=== PATIENT | male | born 1960 | race Caucasian/White ===

== ENCOUNTER 2019-08-09 22:42 | Inpatient (IN) | payer MEDICARE, OTHER ==
[~2019-08-09] VITALS: Ht 175.3 cm; Wt 65.8 kg
[2019-08-09] MEDS ORDERED: BLOOD SUGAR DIAGNOSTIC 1 EACH STRIP IN ONE (23:45)
[2019-08-10 00:01] VITALS: BP 131/75
--- NOTE | 2019-08-10 02:00 | NUR ---
GPS BOTTLE SELECTOR NOTES: RECEIVED PT FROM [facility]. PT IS HOMELESS. ARRIVED THIS UNIT AT 2300 VIA STRETCHER WITH 2 EMT ESCORTS. PT ADMITTED ON 5150 FOR DTS, HOLD WAS PLACED ON 08/09/2019 @ 2230. PER HOLD PT CAME TO [facility] ER COMPLAINING OF THROAT PAIN THAT HAS BEEN GOING ON FOR ABOUT A MONTH WITHOUT IMPROVEMENT BUT DENIES ANY TROUBLE EATING OR DRINKING. PT REPORTED HE HAS BEEN EXPERIENCING SOB FOR THE LAST MONTH AND STATED HE IS FEELING SUICIDAL WITH PLAN TO CUT HIS THROAT WITH A BOTTLE DUE TO HOMELESSNESS. UPON FACE TO FACE ASSESSMENT, PATIENT IS ALERT AND ORIENTED X3. CALM AND COOPERATIVE, APPEARS DEPRESSED WITH FLAT AFFECT. NO BEHAVIORAL ISSUES AT THIS TIME. PT IS CURRENTLY SLEEPING, HAS NO S/S OF DISTRESS AND NO COMPLAINS OF PAINS. PT APPEARS DISHEVELED AND UNKEPT. RESPIRATION EVEN AND UNLABORED WITH EQUAL RISE AND FALL OF THE CHEST, ON ROOM AIR. DENIES SI AT THIS TIME. PT WAS ADVISED OF HIS HOLD. PT'S RIGHTS HANDBOOK GIVEN. PT BELONGINGS WERE INVENTORIED AND CHECKED FOR CONTRABAND AND CONTRABANDS PUT IN LOCKED LOCKER. PT IS UNDER THE PSYCHIATRIC CARE OF DR. BAH AND MEDICAL CARE OF DANILO. SKIN ASSESSMENT DONE, PICTURES TAKEN AND PLACED IN PT CHART. PT MAY BENEFIT FROM CONSTRUCTION JOB TITLES CONSULT DUE TO BILATERAL BLACK OVERGROWN TOE NAILS. SOCIAL SERVICE CONSULT ORDERED BECAUSE PT IS HOMELESS. PT REFUSED TO SIGN ADMISSION PAPER WORK BECAUSE HE IS TIRED. PT ORIENTED TO ROOM, FLOOR AND STAFF WITH ALL QUESTIONS ANSWERED. EDUCATION PROVIDED ON THE USE OF CALL ARREDONDO. PT BED IS IN LOW LOCKED POSITION WITH SIDE RAILS UP X2 FOR SAFETY. CARE PLAN STARTED. FALL PRECAUTIONS IMPLEMENTED. WILL CONTINUE TO MONITOR Q15 MINS AND Q 1HR FOR SAFETY, MOOD AND BEHAVIOR.
[2019-08-10 06:59] LABS: BASOPHILS # (AUTO) 0.1 /CMM (0.0-0.2); BASOPHILS % (AUTO) 0.9 % (0.0-2.0); EOSINOPHILS % (AUTO) 3.1 % (0.0-6.0); HEMATOCRIT 43 % (39-51); HEMOGLOBIN 14.1 g/dL (13.5-17.5); LYMPHOCYTES # (AUTO) 1.8 /CMM (0.8-4.8); LYMPHOCYTES % (AUTO) 28.3 % (20.0-44.0); MEAN CORPUSCULAR HGB CONC 33 g/dl (31.0-36.0); MEAN CORPUSCULAR VOLUME 89 fL (80-96); MONOCYTES # (AUTO) 0.6 /CMM (0.1-1.30); MONOCYTES % (AUTO) 8.6 % (2.0-12.0); NEUTROPHILS # (AUTO) 3.8 /CMM (1.8-8.9); NEUTROPHILS % (AUTO) 59.1 % (43.0-81.0); PLATELET COUNT (AUTO) 186 /CMM (150-450); RED BLOOD CELL COUNT(AUTO) 4.78 MIL/uL (4.5-6.0); WHITE BLOOD COUNT (AUTO) 6.5 K/uL (4.3-11.0)
[2019-08-10 07:07] LABS: CALCIUM, SERUM 8.5 mg/dL (8.5-10.1); POTASSIUM 4.2 mmol/L (3.5-5.1)
[2019-08-10 08:00] VITALS: BP 135/87
--- NOTE | 2019-08-10 10:34 | NUR ---
Initial Discharge Plan: Pt is currently homeless and states that he would like to be discharged to a placement. SW will work with the pt and the MD regarding appropriate discharge planning. SW will form a safe and proper discharge.
--- NOTE | 2019-08-10 15:25 | NUR ---
Group Note: SW encouraged the pt to participate in group therapy but the pt stated that he was feeling exhausted and that he wanted to continue sleeping. SW reassured him that SW will be working on his placement as he does not want to be homeless anymore. Pt thanked the SW and stated that he really did want to continue sleeping.
[2019-08-10 16:06] VITALS: BP 129/85
--- NOTE | 2019-08-10 19:30 | NUR ---
GPS RN NOTE, RECEIVED PATIENT AWAKE AND IN BED, PATIENT DENIES PAIN AT THIS TIME. PATIENT BREATHING IS UNLABORED WITH EQUAL RISE AND FALL OF THE CHEST. PATIENT IS ALERT AND ORIENTED X 3 ON ROOM AIR WITH A SPOO2 97%. PATIENT IS COMPLAINT WITH MEDICATION, DEPRESSED, FLAT AFFECT, ISOLATIVE, CALM, AND COOPERATIVE. PATIENT DENIES SUICIDE AND HOMICIDAL IDEATIONS AT THIS TIME. PATIENT ASSISTED WITH TURNING AND REPOSITIONING Q2HR AND PRN FOR COMFORT AND CIRCULATION. PATIENT HAS NO NEEDS AT THIS TIME. PATIENT EDUCATED ON THE USE OF THE CALL ARREDONDO. PATIENT BED SIDE RAILS UP X 2 FOR SAFETY. PATIENT BED IS LOCKED AND LOW WILL CONTINUE TO MONITOR AND MAINTAIN SAFETY Q15 MIN WITH THE HELP OF STAFF.
[2019-08-10 20:00] VITALS: BP 149/95
[2019-08-10] MEDS: ARIPIPRAZOLE 2 MG TABLET PO SCH (21:22)
[2019-08-11 08:00] VITALS: BP 137/93
[2019-08-11] MEDS: ESCITALOPRAM OXALATE (10 MG) 10 MG TABLET PO SCH (08:10)
[2019-08-11] MEDS: MAGNESIUM HYDROXIDE 30 ML UDC PO PRN (08:54)
--- NOTE | 2019-08-11 08:56 | NUR ---
GPS/RN-NOTES PATIENT REQUESTING MOM FOR CONSTIPATION. MOM 30 ML GIVEN PRN ORDER.
[2019-08-11] MEDS: ACETAMINOPHEN 325 MG TABLET PO PRN (13:48)
--- NOTE | 2019-08-11 13:48 | NUR ---
GPS/RN-NOTES PATIENT REQUESTING TYLENOL FOR HEADACHE,TYLENOL 650MG P.O GIVEN PRN ORDER.
[2019-08-11 16:00] VITALS: BP 129/87
--- NOTE | 2019-08-11 19:31 | NUR ---
GPS/RN OPENING NOTES RECEIVED PATIENT IN BED, AWAKE, ABLE TO RESPOND WHEN ASKED SIMPLE QUESTIONS, PREFERS TO SATY IN THE ROOM, ISOLATIVE, MONITORING FOR ANY CHANGES, RECEIVED ENDORSEMENT FROM AM RN FOR MAYRA.
[2019-08-11 20:00] VITALS: BP 144/82
[2019-08-11] MEDS: ARIPIPRAZOLE 2 MG TABLET PO SCH (21:09)
[2019-08-11] MEDS: LORAZEPAM 0.5 MG TABLET PO PRN (21:09)
--- NOTE | 2019-08-11 21:09 | NUR ---
GPS/RN NOTES PATIENT REQUESTED FOR SOME SNACKS AND IN CHAIR ALSO REQUESTED FOR MEDICATION TO HELP HIM RELAX AND TO CALM DOWN. NEEDED ATIVAN 0.5 MG PER ORAL GIVEN TO MONITOR RELIEF.
[2019-08-12 08:00] VITALS: BP 144/97
[2019-08-12] MEDS: ESCITALOPRAM OXALATE (10 MG) 10 MG TABLET PO SCH (08:25)
--- NOTE | 2019-08-12 09:00 | NUR ---
RN NOTE- PT INTERACTION BRIEF, IRRITATED W ANY QUESTIONING, MED COMPLIANT, ASKED PT TO SHOWER ADLS TODAY. PT AGREED. PO INTAKE GOOD, DEPRESSED. POSITIVE FOR SI THOUGH NO PLAN STATED. DEPRESSED ISOLATIVE .
[2019-08-12] MEDS: LORAZEPAM 0.5 MG TABLET PO PRN ×2 (11:06→18:27)
--- NOTE | 2019-08-12 11:06 | NUR ---
RN NOTE- PT W ANXIETY. ATIVAN 0.5 MG GIVEN AT THIS TIME.
[2019-08-12 16:00] VITALS: BP 132/83
--- NOTE | 2019-08-12 18:27 | NUR ---
RN NOTE- ANXIETY. PT W RESTLESSNESS. ATIVAN 0.5 MG GIVEN
[2019-08-12 20:07] VITALS: BP 128/90
[2019-08-12] MEDS: ARIPIPRAZOLE 2 MG TABLET PO SCH (21:13)
[2019-08-12] MEDS: TEMAZEPAM 7.5 MG CAPSULE PO PRN (21:13)
[2019-08-13 08:00] VITALS: BP 143/98
[2019-08-13] MEDS: ESCITALOPRAM OXALATE (10 MG) 10 MG TABLET PO SCH (08:19)
--- NOTE | 2019-08-13 09:00 | NUR ---
RN NOTE- PT QUIET. CALM. ISOLATIVE GUARDED 'I DONT FEEL LIKE TALKING' .ALL NEEDS ATTENDED PO INTAKE [facility] CONTA[facility]. DENYING SI AT THIS TIME
[2019-08-13] MEDS: LORAZEPAM 0.5 MG TABLET PO PRN (10:11)
--- NOTE | 2019-08-13 10:11 | NUR ---
RN NOTE- PT ANXIOUS RESTLESS. ATIVAN 0.5 MG GIVEN
[2019-08-13] MEDS: METOPROLOL TARTRATE 25 MG TABLET PO SCH (12:00)
--- NOTE | 2019-08-13 15:54 | NUR ---
Group Note: SW encouraged the pt to participate in group therapy but the pt stated that he did not want to interact with other pts. SW provided an individual session to discuss the pts discharge plan. SW stated that referrals were sent out for the pt and once there is an accepting facility he will be discharged soon. Pt stated that he did not want to be homeless anymore because it has been difficult and now the streets seem even more unsafe.
[2019-08-13 16:00] VITALS: BP 124/84
--- NOTE | 2019-08-13 16:03 | NUR ---
SNF Referral: RAYNA faxed a referral to [facility] with attn to Kassandra to the fax number: [phone].
--- NOTE | 2019-08-13 19:48 | NUR ---
RN OPENING NOTES RECEIVED REPORT FROM DAYSHIFT RN. FOUND Pt SLEEPING IN BED, BUT IS EASILY AWAKENED WHEN TOUCHED AND CALLED BY NAME. NO S/S OF ACUTE DISTRESS OR SOB NOTED. RESPIRATIONS EVEN AND UNLABORED WITH EQUAL CHEST RISE AND FALL. SAFETY MEASURES IN PLACE. WILL CONTINUE TO MONITOR Pt's CONDITION AND SAFETY THROUGHOUT THE NIGHT.
[2019-08-13 20:04] VITALS: BP 116/73
[2019-08-13 20:30] VITALS: BP 116/73
[2019-08-13] MEDS: ARIPIPRAZOLE 2 MG TABLET PO SCH (21:05)
[2019-08-13] MEDS: TEMAZEPAM 7.5 MG CAPSULE PO PRN (21:55)
--- NOTE | 2019-08-14 06:34 | NUR ---
RN CLOSING NOTES NO SIGNIFICANT CHANGES NOTED DURING THE NIGHT. Pt REMAINED STABLE PER BASELINE. NO S/S OF ACUTE DISTRESS OR SOB NOTED DURING THE SHIFT. ALL NEEDS MET AND ATTENDED TO. WILL ENDORSE TO DAYSHIFT RN FOR Pt's MAYRA.
[2019-08-14 08:00] VITALS: BP 153/90
[2019-08-14] MEDS: ESCITALOPRAM OXALATE (10 MG) 10 MG TABLET PO SCH (08:16)
[2019-08-14] MEDS: METOPROLOL TARTRATE 25 MG TABLET PO SCH (08:17)
--- NOTE | 2019-08-14 09:49 | NUR ---
GPS RN NOTE: PATIENT ISOLATIVE IN THE ROOM DEPRESSED MOOD COMPLIANT WITH MEDICATIONS DENIES SI/HI AT THIS TIME UNKEPT NOT WANTING TO SHOWER R,INTERMITTENTLY SLEEPING, NO ACUTE DISTRESS NOTED. WILL CONT. MONITORING Q15 MINS. FOR SAFETY AND BEHAVIOR.
--- NOTE | 2019-08-14 10:16 | NUR ---
SNF REFERRAL: SW received a call from Lakisha, sales and events coordinator at [facility] ([facility]) [address] [place] [address] P: [phone] stating that pt has been approved to the facility and will require a COVID test be done 72 hours before admissions.
--- NOTE | 2019-08-14 10:20 | NUR ---
GPS RN NOTE: ORDERS FROM DR BRYANT TO COLLECT SWAB FOR COVID 19 TEST NO ISOLATION NEEDED. ORDER PLACED AND CARED OUT.
--- NOTE | 2019-08-14 14:22 | NUR ---
Individual Counseling: SW met with patient at bedside. The patient was rousable by verbal cues. The patient appears disheveled, made appropriate eye contact and was agreeable to meeting with SW. Patient engaged patient in conversation about his current mood. Patient state dhe was feeling "okay". Per patient he has been experiencing Homelessness for the past 9 months since moving from [place] to [place]. Per patient, his looking forward to getting placed in a SNF. Per patient, he does not have any income and was receiving Social Security Disability Insurance (SSDI) in the past. SW encourage the patient to reapply. Patient stated that will be one of his goal while at SNF. Patient will be invited to attend the next therapeutic milieu.
[2019-08-14 16:00] VITALS: BP 131/84
[2019-08-14] MEDS: ACETAMINOPHEN 325 MG TABLET PO PRN (17:25)
[2019-08-14 20:02] VITALS: BP 129/82
[2019-08-14 20:07] VITALS: BP 129/82
[2019-08-14] MEDS: ARIPIPRAZOLE 2 MG TABLET PO SCH (21:29)
[2019-08-15] MEDS: LORAZEPAM 0.5 MG TABLET PO PRN (07:41)
--- NOTE | 2019-08-15 07:44 | NUR ---
GPS/RN-NOTES NOTED PATIENT ANXIOUS AND AGITATED DURING MY ROUNDS STATED" CAN I HAVE ATIVAN TO CALM ME DOWN". ATIVAN 0.5MG P.O GIVEN PRN ORDER. WILL CONT. MONITORING FOR SAFETY AND BEHAVIOR.
--- NOTE | 2019-08-15 08:25 | NUR ---
GPS/RN-NOTES PATIENT LAYING IN BED AWAKE,ALERT CALM,NO ACUTE DISTRESS NOTED.
[2019-08-15] MEDS: ESCITALOPRAM OXALATE (10 MG) 10 MG TABLET PO SCH (08:42)
[2019-08-15] MEDS: METOPROLOL TARTRATE 25 MG TABLET PO SCH (08:43)
[2019-08-15 09:03] VITALS: BP 142/95
--- NOTE | 2019-08-15 09:22 | NUR ---
GPS/RN-NOTES PATIENT REQUESTING MOM FOR CONSTIPATION. MOM 30ML GIVEN PRN ORDER.
--- NOTE | 2019-08-15 14:34 | NUR ---
INDIVIDUAL INTERVENTION: SW met with pt at bedside and discussed pts discharge plan. SW informed pt that he will be discharged on Tuesday08/20/19 to a SNF. Pts affect was euthymic and stated he was happy that he will be going to a SNF.
[2019-08-15 16:00] VITALS: BP 132/78
[2019-08-15 20:20] VITALS: BP 118/79
[2019-08-15] MEDS: ARIPIPRAZOLE 2 MG TABLET PO SCH (21:06)
[2019-08-16 08:00] VITALS: BP 139/93
[2019-08-16] MEDS: ESCITALOPRAM OXALATE (10 MG) 10 MG TABLET PO SCH (09:02)
[2019-08-16] MEDS: METOPROLOL TARTRATE 25 MG TABLET PO SCH (09:02)
[2019-08-16] MEDS: MAGNESIUM HYDROXIDE 30 ML UDC PO PRN (13:47)
[2019-08-16] MEDS: LORAZEPAM 0.5 MG TABLET PO PRN (14:43)
--- NOTE | 2019-08-16 15:02 | NUR ---
SNF REFERRAL: RAYNA faxed SNF referral to [facility] Address: [address], [place] [address] for review.
[2019-08-16 16:00] VITALS: BP 110/71
--- NOTE | 2019-08-16 16:15 | NUR ---
SNF REFERRAL: SW received a call from [facility] Address: [address] [place] [address] for review stating pt has been accepted to the facility.
--- NOTE | 2019-08-16 18:35 | NUR ---
Closing note Patient in bed in room, does no c/o pain or any discomfort. No noticed agitated, anxious behavior, Pt requested med for MB and given MOM. Respiratory even and unlabored in room air. Skin is war to touch, kept clean/dry. Keep bed in lock with low position. Will continue to monitor for safety.
[2019-08-16 20:23] VITALS: BP 108/69
[2019-08-16] MEDS: ARIPIPRAZOLE 2 MG TABLET PO SCH (21:01)
[2019-08-17 08:00] VITALS: BP 125/79
[2019-08-17] MEDS: ESCITALOPRAM OXALATE (10 MG) 10 MG TABLET PO SCH (08:35)
[2019-08-17] MEDS: METOPROLOL TARTRATE 25 MG TABLET PO SCH (08:36)
--- NOTE | 2019-08-17 09:00 | NUR ---
RN NOTE- PT IN BED ISOLATIVE WITHDRAWN. MED COMPLIANT PARANOID DENIES ALL AT PRESENT
[2019-08-17] MEDS: LORAZEPAM 0.5 MG TABLET PO PRN ×2 (10:51→21:31)
--- NOTE | 2019-08-17 10:52 | NUR ---
RN NOTE- INCREASED ANXIETY. ATIVAN 0.5 MG GIVEN
[2019-08-17 16:00] VITALS: BP 130/81
--- NOTE | 2019-08-17 16:26 | NUR ---
SNF Contact: RAYNA faxed the pts negative COVID results to [facility] to the fax number: [phone].
[2019-08-17] MEDS: ARIPIPRAZOLE 2 MG TABLET PO SCH (21:30)
[2019-08-17] MEDS: TEMAZEPAM 7.5 MG CAPSULE PO PRN (21:31)
[2019-08-18 08:00] VITALS: BP 121/54
[2019-08-18] MEDS: ESCITALOPRAM OXALATE (10 MG) 10 MG TABLET PO SCH (08:18)
[2019-08-18] MEDS: METOPROLOL TARTRATE 25 MG TABLET PO SCH (08:19)
[2019-08-18] MEDS: LORAZEPAM 0.5 MG TABLET PO PRN (09:34)
--- NOTE | 2019-08-18 09:34 | NUR ---
RN NOTE: ANXIETY PT C/O INCREASING ANXIETY. REQUESTING ATIVAN PRN. ATIVAN 0.5 MG PO PRN GIVEN.
[2019-08-18] MEDS: MAGNESIUM HYDROXIDE 30 ML UDC PO PRN (14:57)
[2019-08-18] MEDS: MAG HYDROX/AL HYDROX/SIMETH 30 ML UDC PO PRN (14:57)
--- NOTE | 2019-08-18 14:58 | NUR ---
RN NOTE: PT C/O CONSTIPATION AND STOMACH PAIN. MEDICATED WITH MOM AND MAALOX
[2019-08-18 16:00] VITALS: BP 101/70
[2019-08-18 20:26] VITALS: BP 103/66
[2019-08-18] MEDS: ARIPIPRAZOLE 2 MG TABLET PO SCH (22:14)
[2019-08-19] MEDS: TEMAZEPAM 7.5 MG CAPSULE PO PRN (00:31)
[2019-08-19 08:00] VITALS: BP 135/84
[2019-08-19] MEDS: ESCITALOPRAM OXALATE (10 MG) 10 MG TABLET PO SCH (08:24)
[2019-08-19] MEDS: METOPROLOL TARTRATE 25 MG TABLET PO SCH (08:27)
--- NOTE | 2019-08-19 08:28 | NUR ---
RN NOTE: METOPROLOL HELD DUE TO PULSE OF 52,
[2019-08-19] MEDS: MAG HYDROX/AL HYDROX/SIMETH 30 ML UDC PO PRN (11:18)
[2019-08-19] MEDS: MAGNESIUM HYDROXIDE 30 ML UDC PO PRN (11:18)
[2019-08-19] MEDS ORDERED: BISACODYL (5 MG) 5 MG TABLET.DR PO ONE (11:30)
[2019-08-19] MEDS: LORAZEPAM 0.5 MG TABLET PO PRN (12:34)
--- NOTE | 2019-08-19 12:34 | NUR ---
RN NOTE: ANXIETY PT C/O INCREASING ANXIETY. REQUESTING ATIVAN. ATIVAN 0.5 MG PO PRN GIVEN.
[2019-08-19 16:00] VITALS: BP 137/96
[2019-08-19 20:16] VITALS: BP 113/64
[2019-08-19] MEDS: ARIPIPRAZOLE 2 MG TABLET PO SCH (21:10)
--- NOTE | 2019-08-19 23:00 | NUR ---
RN NOTES PATIENT REFUSED SKIN ASSESSMENT AND WOUND PHOTOS, EXPLAINED RISKS AND BENEFITS. PATIENT STILL REFUSED. WILL CONTINUE TO MONITOR PATIENT.
[2019-08-20 08:00] VITALS: BP 136/90
[2019-08-20] MEDS: ESCITALOPRAM OXALATE (10 MG) 10 MG TABLET PO SCH (08:26)
[2019-08-20] MEDS: METOPROLOL TARTRATE 25 MG TABLET PO SCH (08:26)
--- NOTE | 2019-08-20 08:53 | NUR ---
DISCHARGE NOTE: Pt will be discharged to [facility] Address: [address] [place] [address] . Pt will be transported via [facility] at 2pm. Pt is homeless and there is no one to notify regarding the discharge. Pts mood is anxious with congruent affect. Pt denied visual/auditory hallucinations and denied suicidal/homicidal ideation. Pt is alert and oriented x4 and is ambulatory. Pt will be under the care of Psychiatrist: Dr. Valenzuela ([address], [address] [place] [address]; ) and Chip Mucker: Dr. Seo ([address] [place] [address]; ). The multidisciplinary exit care form was done, printed, signed, and given to the patient. Addendum: 08/20/[address] RAYNA received a call from nurse Shayan at [facility] Address: [address] [place] [address] stating that facility had no knowledge of pts admission and that there was not bed available for pt on this present day. RAYNA informed him that COVID results were faxed to the facility on Tuesday and facility was aware of pts admission. Shayan stated that facility could not accept pt.
[2019-08-20] MEDS: MAG HYDROX/AL HYDROX/SIMETH 30 ML UDC PO PRN ×2 (10:00→15:24)
[2019-08-20] MEDS: MAGNESIUM HYDROXIDE 30 ML UDC PO PRN (10:00)
--- NOTE | 2019-08-20 13:00 | NUR ---
RN NOTE: REPORT CALLED JASVIR BEAR AT [facility] AT [phone]
--- NOTE | 2019-08-20 15:03 | NUR ---
SNF REFERRAL: SW faxed SNF referral to [facility] ([facility]) Address: [address] [place] [address] for review.
[2019-08-20] MEDS: LORAZEPAM 0.5 MG TABLET PO PRN (15:24)
--- NOTE | 2019-08-20 15:25 | NUR ---
RN NOTE: PT C/O INCREASING ANXIETY AND STOMACH PAIN. MEDICATED WITH ATIVAN 0.5 MG PO AND MAALOX PRN
--- NOTE | 2019-08-20 15:53 | NUR ---
SNF REFERRAL: SW received a call from ronak Ferrara at [facility] (SNF) Address: [address] [place] [address] stating pt has been accepted to the facility.
[2019-08-20 16:00] VITALS: BP 128/85
[2019-08-20 20:50] VITALS: BP 117/81
[2019-08-20] MEDS: ARIPIPRAZOLE 2 MG TABLET PO SCH (21:12)
[2019-08-21] MEDS: MAG HYDROX/AL HYDROX/SIMETH 30 ML UDC PO PRN (06:03)
--- NOTE | 2019-08-21 06:04 | NUR ---
GPS RN NOTE: MAALOX 30ML PO FOR INDIGESTION.
[2019-08-21 08:00] VITALS: BP 126/81
[2019-08-21 08:20] VITALS: BP 126/81
[2019-08-21] MEDS: METOPROLOL TARTRATE 25 MG TABLET PO SCH (08:20)
[2019-08-21] MEDS: LORAZEPAM 0.5 MG TABLET PO PRN (08:21)
[2019-08-21] MEDS: ESCITALOPRAM OXALATE (10 MG) 10 MG TABLET PO SCH (08:21)
--- NOTE | 2019-08-21 08:21 | NUR ---
RN NOTE- PT W ANXIETY 0.5 MG ATIVAN GIVEN
--- NOTE | 2019-08-21 09:00 | NUR ---
RN NOTE- PT IN BED RESTING QUIETLY. PO INTAKE GOOD MED COMPLIANT ISOLATIVE DENIES ALL.
--- NOTE | 2019-08-21 11:45 | NUR ---
RN NOTE- PT DC AT THIS TIME VIA AMBULANCE TO SNF REPORT CALLED IN AT 1100. PT DC INSTRUCTIONS GIVEN AND REVIEWED W PT AND SNF. VERBALIZED UNDERSTANDING. ALERT ORIENTED X 4. SKIN INTACT. NO PHOTOS NEEDED. CALM DIRECTABLE. DENIES SI HI AH VH. ID WRISTBAND REMOVED. ASSISTED OFF UNIT BY AMBULANCE STAFF ON [facility]
--- NOTE | 2019-08-21 13:32 | NUR ---
Discharge Note: Pt was discharged at 10:00am to [facility] ([facility]) Address: [address] [place] [address] via [facility]. Pt is homeless and did not have any family to notify. Upon discharge, the pt appeared to be in a euthymic mood and presented with a calm affect. Pt appeared to be alert and oriented x4 (time, place, self and situation). Pt denied both suicidal and homicidal ideation as well as auditory and visual hallucinations. Pt appears to be ambulatory with a steady gait. Pt appears to be groomed and appropriately dressed. Pt will be under the care of psychiatrist, Dr. Francine Boswell, located at [address] [place] [id number] [phone] and back feeder plywood layup line, Dr Seo, located at [address] [place] [address]; . Pt was given homeless resources and the pt signed both the homeless waiver and the choice of vendor.
== END 2019-08-21 11:40 | DRG 885 ==
LOC: GPS 22:42
PROVIDERS: ADMIT Psychiatry & Neurology Psychiatry; ATTEND Nurse Practitioner Acute Care
DX: F33.3 Major depressive disorder, recurrent, severe with psychotic symptoms (principal); F23 Brief psychotic disorder; R45.851 Suicidal ideations; F41.9 Anxiety disorder, unspecified; I10 Essential (primary) hypertension; Z59.0 Homelessness; I71.2 Thoracic aortic aneurysm, without rupture; E78.5 Hyperlipidemia, unspecified
CPT/HCPCS: 36415; 80048-TC; 80061-TC; 82962-TC; 85025-TC; 87081-TC; U0003-CS